=== PATIENT | male | born 1985 | race Caucasian/White ===

== ENCOUNTER 2017-02-13 08:49 | Emergency (ER) | payer SELFPAY ==
[~2017-02-13] VITALS: Ht 175.3 cm; Wt 60.6 kg
[2017-02-13 08:53] VITALS: BP 126/83
== END 2017-02-13 10:39 | disposition left against medical advice (07) ==
LOC: EME 08:49
DX: R21 Rash and other nonspecific skin eruption (principal); Z53.21 Procedure and treatment not carried out due to patient leaving prior to being seen by health care provider

== ENCOUNTER 2017-10-22 13:25 | Emergency (ER) | payer SELFPAY ==
[~2017-10-22] VITALS: Ht 177.8 cm; Wt 58.6 kg
[2017-10-22 13:59] LABS: HEMATOCRIT 44.3 % (38.0-50.0); HEMOGLOBIN 15.4 G/DL (12.5-16.6); MCH 33.3 PG (29.0-34.0); MCHC 34.8 G/DL (30.0-36.0); MCV 95.9 FL (86-99); PLATELET COUNT 263 K/uL (156-360); RBC DIS.WIDTH-CV 12.6 % (11.8-14.6); RBC DIS.WIDTH-SD 44.6 % (39-53); RED BLOOD COUNT 4.62 M/uL (4.00-5.50)
[2017-10-22 14:08] LABS: ALBUMIN 4.5 g/dL (3.2-4.8); CHLORIDE 106 mEq/L (99-109); POTASSIUM 4.4 mEq/L (3.7-5.4)
[2017-10-22 14:09] LABS: SODIUM 139 mEq/L (136-147)
[2017-10-22 14:11] LABS: GLUCOSE 124 mg/dL (70-99); TOTAL PROTEIN 7.2 g/dL (6.4-8.3)
[2017-10-22 14:13] LABS: TOTAL BILIRUBIN 0.4 mg/dL (0.0-1.0)
[2017-10-22 14:14] LABS: ALKALINE PHOSPHATASE 102 IU/L (3-129); CREATININE 0.9 mg/dL (0.6-1.3); GFR ESTIMATE (CALCULATED) > 59 mL/min/ (58.99-99999)
[2017-10-22 14:16] LABS: AST (GOT) 15 IU/L (2-34); UREA NITROGEN (BUN) 10 mg/dL (9-23)
[2017-10-22 14:17] LABS: ALT (GPT) 10 IU/L (3-49)
[2017-10-22] MEDS ORDERED: ANUSOL HC,ANUCO25 MG PR (15:16)
[2017-10-22 15:45] VITALS: BP 108/75
== END 2017-10-22 15:48 | disposition home or self-care (01) ==
LOC: EME 13:25
DX: K64.4 Residual hemorrhoidal skin tags (principal); F17.200 Nicotine dependence, unspecified, uncomplicated
CPT/HCPCS: 80053; 81003; 85027; 99281; 99284